=== PATIENT | female | born 1970 | race Caucasian/White ===

== ENCOUNTER 2017-02-07 09:35 | Emergency (ER) | payer OTHER ==
[2017-02-07 09:48] VITALS: BP 135/82; PULSE 78; TEMP 98.6; BMI 37.1
--- NOTE | 2017-02-07 10:55 | PDOC ---
History of Present Illness - General Chief Complaint: Asthma Stated Complaint: SOB, HIGH BLOOD PRESSURE Time Seen by Provider: 02/07/17 10:17 History Source: Patient Exam Limitations: No Limitations - History of Present Illness Initial Comments: 02/07/17 10:55 My chief complaint: intermittent lightheadedness, shortness of breath with exertion, wheezing, since 02/04/2017 My chief complaint: Patient is a 46 year old female with a history of asthma/ gastritis complaining of intermittent lightheadedness with shortness of breath with exertion with wheezing since 02/04/2017. Patient reports that she recently had lab work with her primary care provider and does not have a history of anemia. Patient does have a history also of fibroids. Patient reports that her menstrual cycle as heavy for 2 days only. Patient is being followed by Dr. Tipton for possible hypothroidism will be getting a 24 hr urine cortisol in near future. Pt. denies use her albuterol pump yesterday once for slight wheezing and shortness of breath with relief of symptoms. Patient denies any nasal congestion. Patient reports that she was given a prescription for zyrtec due to having seasonal allergies but has not started to take it. 02/07/17 16:34 02/07/17 16:37 Timing/Duration: intermittent (lightheadness intermittent today and 02/04/17 when at gym riding a bike ) Associated Symptoms: reports: cough (dry ), shortness of breath (with exertion since 02/04/17), other (wheezing intermitent for last few days). denies: headaches, loss of appetite Past History - Past Medical History Allergies/Adverse Reactions: Allergies Allergy/AdvReac Type Severity Reaction Status Date / Time codeine Allergy Verified 02/07/17 09:49 Home Medications: Ambulatory Orders Albuterol 0.083% Nebulizer Angelica [Ventolin 0.083%] 1 neb NEB QID PRN 12/30/15 Asthma: Yes GI Disorders: Yes (GASTRITIS) Suicide Attempt (Hx): No - Surgical History Abdominal Surgery: No Appendectomy: No Cardiac Surgery: No Cholecystectomy: No Lung Surgery: No Neurologic Surgery: No Orthopedic Surgery: No - Immunization History Immunization Up to Date: Yes (FLU 13-14) - Psycho/Social/Smoking Cessation Hx Anxiety: No Suicidal Ideation: No Smoking Status: Yes Smoking History: Never smoked Years of Tobacco Use: 10 Have you smoked in the past 12 months: No Number of Cigarettes Smoked Daily: 10 If you are a former smoker, when did you quit?: 1 YR AGO Cigars Per Day: 0 Hx Alcohol Use: No Drug/Substance Use Hx: No Substance Use Type: None Hx Substance Use Treatment: No Review of Systems - Review of Systems Able to Perform ROS?: Yes Constitutional: No: Symptoms Reported HEENTM: No: Symptoms Reported Respiratory: Yes: Cough (dry intermittent ), SOB with Exertion, Wheezing ( intermitent since 02/04/17) Cardiac (ROS): Yes: Palpitations (with exertion intermittent since 02/04/17) ABD/GI: No: Symptoms Reported : No: Symptoms Reported Musculoskeletal: No: Symptoms Reported Integumentary: No: Symptoms Reported Neurological: No: Symptoms reported *Physical Exam - Vital Signs Last Vital Signs Temp Pulse Resp BP Pulse Ox 98.6 F 78 18 135/82 99 02/07/17 09:46 02/07/17 09:46 02/07/17 09:46 02/07/17 09:46 02/07/17 09:46 - Physical Exam General Appearance: Yes: Appropriately Dressed HEENT: positive: EOMI, AKUA, TMs Normal, Nasal Congestion (superior turbinate edema b/l ). negative: Pharyngeal Erythema, Tonsillar Exudate, Tonsillar Erythema, Rhinorrhea, Sinus Tenderness Neck: negative: Lymphadenopathy (R), Lymphadenopathy (L) Respiratory/Chest: positive: Lungs Clear, Normal Breath Sounds. negative: Chest Tender, Respiratory Distress Cardiovascular: positive: Regular Rhythm, Regular Rate, S1, S2 Integumentary: positive: Normal Color Neurologic: positive: mining technician II-XII NML intact, Fully Oriented, Alert, Normal Response, Respond to painful stimul, Responsive, Finger to Nose. negative: Numbness, Sensory Deficit Medical Decision Making - Medical Decision Making 02/07/17 16:37 Patient is a 46 year old female with a history of asthma/gastritis complaining of intermittent lightheadedness with shortness of breath with exertion with wheezing since 02/04/2017. Patient reports that she recently had lab work with her primary care provider and does not have a history of anemia. Patient does have a history also of fibroids. Patient reports that her menstrual cycle as heavy for 2 days only. Patient is being followed by Dr. Tipton for possible hypothroidism will be getting a 24 hr urine cortisol in near future. Pt. denies use her albuterol pump yesterday once for slight wheezing and shortness of breath with relief of symptoms. Patient denies any nasal congestion. Patient reports that she was given a prescription for zyrtec due to having seasonal allergies but has not started to take it. Intermittent wheezining nasal congestion as noted by superior turbinate edema b/l PLAN: Follow-up with your primary care provider as soon as possible Start taking zytrec previously ordered and usel albuterol pump as previously ordered and any other pumps reviewed labs from 01/27/17 no anemia noted' 02/07/17 16:38 02/07/17 16:39 *DC/Admit/Observation/Transfer Diagnosis at time of Disposition: Nasal congestion, Asthma exacerbation, mild - Referrals Referrals: Fern Shi MD [Primary Care Provider] - - Patient Instructions Additional Instructions: Follow uo with Your primary care provider as soon as possible start taking Zyrtec as previously prescribed use your albuterol pump as previously prescribed as needed for shortness of breath or wheezing Return to emergency room if symptoms worsen Follow up with endocrine as scheduled Follow up with your certified medical biller doctor as soon as possible
== END 2017-02-07 11:24 | disposition home or self-care (01) ==
LOC: JERFT 09:35
DX: J45.901 Unspecified asthma with (acute) exacerbation (principal); R09.81 Nasal congestion
CPT/HCPCS: 99281-25

== ENCOUNTER 2017-11-30 18:53 | Emergency (ER) | payer OTHER ==
--- NOTE | 2017-11-30 19:10 | PDOC ---
History of Present Illness - History of Present Illness Initial Comments: 11/30/17 19:52 The patient is a 47 year old female, with a significant past medical history of asthma, gastritis, fibroids, and endometriosis, who was referred to the emergency department by her primary for RLQ pain and dark stools. Patient reports that on 11/28 and 11/29 she experienced RLQ pain and diarrhea. Yesterday and today she noted dark-colored stools. She also reports chills and nausea this morning. She denies recent fevers, chills, headache or dizziness. She denies recent vomit or constipation. She denies recent dysuria, frequency, urgency or hematuria. She denies recent chest pain or shortness of breath. Primary Care Physician: Dr. Jarrell PAST MEDICAL HISTORY: no significant history PAST SURGICAL HISTORY: tubal ligation FAMILY HISTORY: no pertinent history SOCIAL HISTORY: Pt lives with family and is employed. MEDICATIONS: reviewed ALLERGIES: As per nursing notes ROS General: No fevers or chills, no weakness, no weight loss HEENT: No change in vision. No sore throat, No ear pain Cardiovascular: No chest pain or shortness of breath Respiratory:No cough, or wheezing. Gastrointestinal: +RLQ pain, + diarrhea, +nausea,+dark-colored stools. No vomiting or constipation, No rectal bleeding Genitourinary: No dysuria, hematuria, or frequency Musculoskeletal: No joint or muscle pain or swelling Neurologic: No headache, vertigo, dizziness or loss of consciousness Psychiatric: No depression Skin: No rashes or easy bruising Endocrine: No increased thirst or abnormal weight change Allergic: No skin or latex allergy All other systems reviewed and normal PE GENERAL: The patient is awake, alert, and fully oriented, in no acute distress. HEAD: Normal with no signs of trauma. EYES: Pupils equal, round and reactive to light, extraocular movements intact, sclera anicteric, conjunctiva clear. EXTREMITIES: Normal range of motion, no edema. NEUROLOGICAL: Normal speech, normal gait. PSYCH: Normal mood, normal affect. SKIN: Warm, Dry, normal turgor, no rashes or lesions noted. Rectal Exam: No hemorrhoids, non tender, dark brown stool. No blackness or tarriness noted. <Jana Gaming - Last Filed: 11/30/17 19:52> - General History Source: Patient Exam Limitations: No Limitations - History of Present Illness Initial Comments: A portion of this note was documented by scribe services under my direction. I have reviewed the details of the note, within reason, and agree with the documentation. The case summary and management plan written by me. 11/30/17 20:04 Assessment and plan: This is a 47-year-old female who comes in complaining of dark stools 1 day. Patient had 2 days of diarrhea and some lower abdominal pain which have all since resolved. Patient is had no diarrhea today or abdominal pain. Patient has had no nausea vomiting fevers chills or any other complaints. On my exam patient abdomen was soft with normal bowel sounds no tenderness over the lower abdomen. Patient had a rectal exam done that was nontender with guaiac-negative stool. No further workup was done at this time as patient had normal vitals normal exam and guaiac negative stool. Patient discharged told to follow-up with her primary care doctor <Ana Elliott I - Last Filed: 11/30/17 20:05> - General Chief Complaint: Pain, Acute Stated Complaint: RLQ ABD PAIN Time Seen by Provider: 11/30/17 19:10 Past History <Jana Gaming - Last Filed: 11/30/17 19:52> - Past Medical History Asthma: Yes GI Disorders: Yes (GASTRITIS) - Surgical History Abdominal Surgery: No Appendectomy: No Cardiac Surgery: No Cholecystectomy: No Lung Surgery: No Neurologic Surgery: No Orthopedic Surgery: No - Immunization History Immunization Up to Date: Yes (FLU 13-14) - Suicide/Smoking/Psychosocial Hx Smoking Status: Yes Smoking History: Never smoked Years of Tobacco Use: 10 Have you smoked in the past 12 months: No Number of Cigarettes Smoked Daily: 10 If you are a former smoker, when did you quit?: 1 YR AGO Cigars Per Day: 0 Hx Alcohol Use: No Drug/Substance Use Hx: No Substance Use Type: None Hx Substance Use Treatment: No <Ana Elliott I - Last Filed: 11/30/17 20:05> - Past Medical History Allergies/Adverse Reactions: Allergies Allergy/AdvReac Type Severity Reaction Status Date / Time codeine AdvReac Unknown Verified 11/30/17 18:55 Home Medications: Ambulatory Orders Cholecalciferol (Vitamin D3) [Vitamin D3 -] 50,000 unit PO ASDIR 11/30/17 Abd/GI Specific PMHX - Complaint Specific PMHX Colitis: No Diverticulitis: No <Ana Elliott I - Last Filed: 11/30/17 20:05> Review of Systems - Review of Systems Comments:: 11/30/17 19:53 see HPI <Jana Gaming - Last Filed: 11/30/17 19:52> *Physical Exam - Vital Signs Last Vital Signs Temp Pulse Resp BP Pulse Ox 98.2 F 56 L 20 127/77 100 11/30/17 18:54 11/30/17 18:54 11/30/17 18:54 11/30/17 18:54 11/30/17 18:54 - Physical Exam Comments: 11/30/17 19:53 see HPI. <Jana Gaming - Last Filed: 11/30/17 19:52> ED Treatment Course - ADDITIONAL ORDERS Additional order review: Laboratory Results 11/30/17 11/30/17 11/30/17 19:40 19:15 19:15 Urine Color Yellow Urine Appearance Clear Urine pH 7.0 Ur Specific [place] 1.010 Urine Protein Negative Urine Glucose (UA) Negative Urine Ketones Negative Urine Blood Negative Urine Nitrite Negative Urine Bilirubin Negative Urine Urobilinogen 0.2 Ur Leukocyte Esterase Negative Urine HCG, Qual Negative Stool Occult Blood Negative <Jana Gaming - Last Filed: 11/30/17 19:52> *DC/Admit/Observation/Transfer - Attestations Scribe Attestion: 11/30/17 19:53 Documentation prepared by Jana Gaming, acting as medical transcription for Ana Elliott MD. <Jana Gaming - Last Filed: 11/30/17 19:52> - Discharge Dispostion Admit: No <Ana Elliott I - Last Filed: 11/30/17 20:05> Diagnosis at time of Disposition: Dark stools - Discharge Dispostion Disposition: HOME - Patient Instructions Additional Instructions: The test that I did to determine if there was any blood in your stool was negative for any blood. Return to the emergency department immediately with ANY new, persistent or worsening symptoms. Continue any medications as previously prescribed by your physician. You should follow up with your primary doctor as soon as possible regarding today's emergency department visit. . Please make sure your doctor reviews the results of your emergency evaluation. Thank you for coming to the Emergency Department today for your care. It was a pleasure to see you today. Please note that your evaluation is INCOMPLETE until you follow-up with your doctor.
[2017-11-30 19:11] VITALS: BP 127/77; PULSE 56; TEMP 98.2; BMI 37.1
[2017-11-30 19:36] LABS: URINE APPEARANCE Clear; URINE BILIRUBIN Negative (NEGATIVE); URINE BLOOD Negative (NEGATIVE); URINE COLOR YELLOW; URINE GLUCOSE (UA) Negative (NEGATIVE); URINE KETONE Negative (NEGATIVE); URINE LEUK ESTERASE Negative (NEGATIVE); URINE NITRITE Negative (NEGATIVE); URINE PROTEIN Negative (NEGATIVE); URINE UROBILINOGEN 0.2 (0.2-1.0)
== END 2017-11-30 20:04 | disposition home or self-care (01) ==
LOC: FER 18:53
DX: K92.1 Melena (principal); Z87.891 Personal history of nicotine dependence; J45.909 Unspecified asthma, uncomplicated
CPT/HCPCS: 36415; 81003; 82272; 84703; 99282-25

== ENCOUNTER 2019-01-28 05:59 | Inpatient (IN) | payer OTHER ==
[2019-01-28 07:02] VITALS: BMI 40.3
[2019-01-28] MEDS ORDERED: DEXAMETHASONE SOD PHOSPHATE 4 MG/1 ML VIAL ONE (07:22)
[2019-01-28] MEDS ORDERED: PROPOFOL 20 ML ONE (07:23)
[2019-01-28] MEDS ORDERED: ROCURONIUM BROMIDE 50 MG/5 ML VIAL ONE (07:23)
[2019-01-28] MEDS ORDERED: MIDAZOLAM HCL 2 MG/2 ML SINGLE DOSE VIAL ONE ×2 (07:23→07:27)
[2019-01-28] MEDS ORDERED: ROPIVACAINE HCL 0.5% 30ML VIAL ONE (07:27)
--- NOTE | 2019-01-28 07:45 | HP ---
Admitting History and Physical - Admission Chief Complaint: Morbid obesity History of Present Illness: As above History Source: Patient Limitations to Obtaining History: No Limitations - Past Medical History Pulmonary: Yes: Asthma ...LMP: 12/12/18 ...: No - Past Surgical History Past Surgical History: Yes: - Smoking History Smoking history: Never smoked Have you smoked in the past 12 months: No Aproximately how many cigarettes per day: 10 If you are a former smoker, when did you quit?: 2009 - Alcohol/Substance Use Hx Alcohol Use: Yes (SOCIALLY) Home Medications - Allergies Allergies/Adverse Reactions: Allergies Allergy/AdvReac Type Severity Reaction Status Date / Time codeine AdvReac Unknown ANXIETY;NER Verified 01/22/19 13:51 VOUS - Home Medications Home Medications: Ambulatory Orders Albuterol Sulfate [Albuterol Sulfate Hfa] 2 puff IH ASDIR PRN 01/22/19 Multivitamins [Tab-A-Vit -] 1 tab PO DAILY 01/22/19 Family Disease History - Family Disease History Family History: Denies Review of Systems - Review of Systems Constitutional: denies: Chills, Fever Neck: reports: No Symptoms Cardiovascular: reports: No Symptoms Respiratory: reports: No Symptoms Gastrointestinal: reports: No Symptoms Neurological: reports: No Symptoms Pain Intensity: 0 Physical Examination Vital Signs: Vital Signs Temperature 98.0 F 01/28/19 06:57 Pulse Rate 59 L 01/28/19 06:57 Respiratory Rate 18 01/28/19 06:57 Blood Pressure 123/82 01/28/19 06:57 O2 Sat by Pulse Oximetry (%) HENT: Yes: WNL Neck: Yes: WNL Cardiovascular: Yes: WNL Respiratory: Yes: Regular Gastrointestinal: Yes: Soft, Abdomen, Obese. No: Tenderness Neurological: Yes: Alert, Oriented Problem List - Problems (1) Morbid obesity due to excess calories Code(s): E66.01 - MORBID (SEVERE) OBESITY DUE TO EXCESS CALORIES (2) Asthma Code(s): J45.909 - UNSPECIFIED ASTHMA, UNCOMPLICATED Qualifiers: Asthma severity: unspecified severity Asthma complication type: unspecified Assessment/Plan Laparoscopic possible open vertical sleeve gastrectomy possible liver biopsy, upper endoscopy
[2019-01-28] MEDS ORDERED: ALBUTEROL SO4 8 GM HFA INHALER IH PRN (07:47)
[2019-01-28] MEDS ORDERED: BUPIVACAINE HCL/PF 2.5 MG/ML - 30 ML VIAL IJ ONE (08:55)
[2019-01-28] MEDS ORDERED: GLYCOPYRROLATE 0.2 MG/1 ML VIAL ONE (09:22)
[2019-01-28] MEDS ORDERED: NEOSTIGMINE METHYLSULFATE 0.5 MG/ML - 10 ML MDV ONE (09:22)
--- NOTE | 2019-01-28 09:32 | OP ---
Operative Note - Note: Operative Date: 01/28/19 Pre-Operative Diagnosis: Morbid obesity. BMI 40.4 Operation: Laparoscopic vertical sleeve gastrectomy. wedge liver biopsy Post-Operative Diagnosis: Same as Pre-op (as well as hepatomegaly) Surgeon: Burt Lizama Replenishment Specialist: Luis Fernando Das Anesthesia: General Specimens Removed: Greater curvature of stomach. Liver biopsy Estimated Blood Loss (mls): 30 Drains & Tubes with Location: 36 Fr Bougie Operative Report Dictated: Yes
[2019-01-28] MEDS: ACETAMINOPHEN 1000 MG/100 ML VIAL (NON FORMULARY) IVPB SCH ×4 (09:50→21:32)
[2019-01-28] MEDS ORDERED: FAMOTIDINE 20 MG PREMIXED IVPB IVPB ONE (10:00)
[2019-01-28] MEDS: METOCLOPRAMIDE HCL INJECTION 10 MG/2 ML VIAL IVPUSH SCH ×4 (10:10→21:33)
[2019-01-28] MEDS: ONDANSETRON 4 MG/2 ML VIAL IVPUSH SCH ×5 (10:28→21:32)
[2019-01-28 10:34] LABS: HEMATOCRIT 38.7 % (32.4-45.2); HEMOGLOBIN 12.3 GM/dl (10.7-15.3); MCH 26.9 pg (25.7-33.7); MCHC 31.8 g/dl (32.0-36.0); MEAN CELL VOLUME 84.7 fl (80-96); MEAN PLT VOLUME 8.9 fl (7.5-11.1); PLATELET COUNT 289 K/MM3 (134-434); RBC 4.57 M/mm3 (3.60-5.2); RDW 14.1 % (11.6-15.6); WHITE BLOOD COUNT 10.6 K/mm3 (4.0-10.8)
[2019-01-28 10:41] LABS: ALBUMIN 3.6 g/dl (3.4-5.0); ALK PHOS 127 U/L (45-117); ANION GAP 6 MMOL/L (8-16); BILIRUBIN,TOTAL 0.7 mg/dl (0.2-1); BLOOD UREA NITROGEN 13 mg/dl (7-18); CALCIUM 8.6 mg/dl (8.5-10); CHLORIDE 104 mmol/L (98-107); CO2 24 mmol/L (21-32); CREATININE 0.7 mg/dl (0.55-1.3); GLUCOSE,RANDOM 130 mg/dl (74-106); SGOT/AST 50 U/L (15-37); SGPT/ALT 45 U/L (13-61); SODIUM 134 mmol/L (136-145); TOT PROT 6.6 g/dl (6.4-8.2)
[2019-01-28] MEDS: SODIUM CHLORIDE 1,000 ML IV SCH (10:59)
[2019-01-28] MEDS: FAMOTIDINE 20 MG/50 ML IVPB 20 MG/50 ML MG IVPB SCH ×2 (11:00→21:32)
[2019-01-28] MEDS: HYDROmorphone HCL CARPU-JECT 1 MG/1 ML DISP.SYRIN IVPB PRN (14:22)
--- NOTE | 2019-01-28 18:57 | SPEC ---
DATE OF OPERATION: 01/28/2019 SURGEON: Nila Lizama MD FUR DYER: Luis Fernando Das MD PREOPERATIVE DIAGNOSES: 1. Morbid obesity. 2. Asthma. 3. Body mass index of 40.4. POSTOPERATIVE DIAGNOSES: 1. Morbid obesity. 2. Asthma. 3. Body mass index of 40.4. 4. Hepatomegaly. PROCEDURE: 1. Laparoscopic vertical sleeve gastrectomy. 2. Laparoscopic wedge liver biopsy. SPECIMEN: 1. Greater curvature of the stomach. 2. Liver biopsy. ESTIMATED BLOOD LOSS: 30 mL. DRAIN: None. ANESTHESIA: GET. BOUGIE SIZE: 36-[place]. REASON FOR PROCEDURE: This is a 48-year-old female who presents for weight loss options. After describing different options, she decided to proceed with a laparoscopic, possible open, vertical sleeve gastrectomy, possible liver biopsy, and upper endoscopy. RISKS AND BENEFITS: After describing the different options for weight loss management, the patient decided to proceed with a laparoscopic, possible open vertical sleeve gastrectomy. The patient was seen by the respective subspecialties and cleared for surgery. The risks and benefits of the procedure were explained. These included bleeding, infection, hernia, VA, DVT, PE, injury to surrounding structures including the liver, colon, bowel, spleen, esophagus, vessel injury, nerve injury, weight regain, gastric leak, staple line leak, sleeve leak, obstruction, vitamin deficiency, hair loss and as some of the possible complications. The patient understood and signed informed consent. DESCRIPTION OF PROCEDURE: The patient was placed supine on the operating room table. The patient underwent general endotracheal intubation. The arms were brought out at 90 degrees and secured. A footboard was placed and the legs were secured laterally with padding. The abdomen was prepped and draped in the usual sterile fashion. A timeout was performed. An incision was made in the left upper quadrant and a Veress needle inserted. Pneumoperitoneum was established. Subsequently, the Veress needle was removed and a 5-mm trocar was placed under direct visualization with the laparoscope. The laparoscopic camera was then inserted and inspection of the abdominal cavity was performed. An incision was then made in the supraumbilical area and a 15-mm trocar was placed under direct visualization. A 5-mm trocar was then placed in the right upper quadrant and a 5-mm trocar was placed below the left subcostal margin. A stab wound was made in the subxiphoid area and a Stpehanie clamp inserted and removed to dilate the tract. A Cynthia liver retractor was inserted. The post was secured at the bedside by the nursing staff. The patient was placed in steep reverse Trendelenburg position and the Cynthia liver retractor was used to secure the liver towards the anterior abdominal wall. The pylorus was identified and 6 cm proximal to it, the lesser sac was entered using the LigaSure device. All lateral attachments to the greater curvature of the stomach, including the short gastric vessels, were ligated using the LigaSure device toward the gastrosplenic and gastrophrenic ligaments. Once this was done in its entirety, it was confirmed that all tubes within the nasal or oropharyngeal cavity, including a temperature probe, was removed by Anesthesia. The bougie was then inserted by Anesthesia. Transection of the stomach was then begun staying adjacent to the bougie but away from the angularis. Transection of the stomach was performed near the portion of the stomach where the lesser sac was entered. Two laparoscopic Endo-MEI black sade were used at this location. Laparoscopic Endo MEI purple staple loads were then used for the remainder of the transection until the greater curvature of the stomach was fully transected. This was done staying close to the bougie. Care was taken to stay away from the angle of His cephalad. The staple line was then inspected. Hemostasis was identified. A leak test was then performed. It was clamped distally to the staple line. Irrigation solution was placed in the left upper quadrant and air was insufflated by Anesthesia into the sleeve. No leaks were identified. No obstruction was identified. This was done through the entirety of the staple line. In addition, an upper endoscopy was performed. The endoscope was placed into the patients mouth and the entirety of the esophagus, GE junction, gastric pouch and staple line were inspected. No obstruction or leak was noted. The stomach was suctioned and the endoscope removed fully intact. At this point, the irrigation solution was suctioned and again, hemostasis was noted. A wedge liver biopsy was then performed. The left lobe of the liver was identified and a portion of the edge was grasped. Using electrocautery, a wedge of the liver was excised. This was removed and sent off the field as specimen. Hemostasis at the site of the wedge liver biopsy was attained using electrocautery. The 15-mm supraumbilical trocar was then removed and the greater curvature specimen removed from the site using a sponge stick marino. The specimen was inspected and a Veress needle inserted. The specimen insufflated adequately and no leak was identified. The staple line was noted to be intact. A Catalino-Reshma device was then used to close the fascia with a 0 Vicryl suture at the site. Again, hemostasis was noted. The Cynthia liver retractor was then removed under direct visualization. Pneumoperitoneum was desufflated and the fascial sutures were secured. Hemostasis was noted at all incision sites and Marcaine was injected at all incision sites. All incision sites were closed using 4-0 Biosyn. Sterile dressings were applied. The patient tolerated the procedure well and was transferred to the recovery room in stable condition. The patient was transferred to telemetry for further monitoring. NILA LIZAMA M.D. NATALEE/[id number]
[2019-01-28] MEDS: ENOXAPARIN NA (PORCINE) 40 MG/0.4 ML DISP.SYRIN SQ SCH (21:31)
[2019-01-29] MEDS: ONDANSETRON 4 MG/2 ML VIAL IVPUSH SCH ×3 (02:07→10:15)
[2019-01-29] MEDS: METOCLOPRAMIDE HCL INJECTION 10 MG/2 ML VIAL IVPUSH SCH ×2 (03:24→10:14)
[2019-01-29] MEDS: ACETAMINOPHEN 1000 MG/100 ML VIAL (NON FORMULARY) IVPB SCH (03:25)
[2019-01-29 07:50] LABS: HEMATOCRIT 34.1 % (32.4-45.2); HEMOGLOBIN 11.1 GM/dl (10.7-15.3); MCH 27.4 pg (25.7-33.7); MCHC 32.6 g/dl (32.0-36.0); MEAN PLT VOLUME 9.2 fl (7.5-11.1); PLATELET COUNT 265 K/MM3 (134-434); RBC 4.06 M/mm3 (3.60-5.2); RDW 14.1 % (11.6-15.6); WHITE BLOOD COUNT 9.1 K/mm3 (4.0-10.8)
[2019-01-29 08:00] LABS: ALBUMIN 3.1 g/dl (3.4-5.0); ALK PHOS 105 U/L (45-117); ANION GAP 6 MMOL/L (8-16); BILIRUBIN,TOTAL 1.1 mg/dl (0.2-1); BLOOD UREA NITROGEN 9 mg/dl (7-18); CHLORIDE 106 mmol/L (98-107); CO2 22 mmol/L (21-32); CREATININE 0.6 mg/dl (0.55-1.3); GLUCOSE,RANDOM 88 mg/dl (74-106); POTASSIUM 3.8 mmol/L (3.5-5.1); SGOT/AST 38 U/L (15-37); SGPT/ALT 39 U/L (13-61); SODIUM 134 mmol/L (136-145); TOT PROT 5.9 g/dl (6.4-8.2)
[2019-01-29] MEDS: SODIUM CHLORIDE 1,000 ML IV SCH (10:13)
[2019-01-29] MEDS: ENOXAPARIN NA (PORCINE) 40 MG/0.4 ML DISP.SYRIN SQ SCH (10:14)
[2019-01-29] MEDS: FAMOTIDINE 20 MG/50 ML IVPB 20 MG/50 ML MG IVPB SCH (10:14)
[2019-01-29] MEDS: HYDROmorphone HCL CARPU-JECT 1 MG/1 ML DISP.SYRIN IVPB PRN (10:16)
--- NOTE | 2019-01-29 11:23 | PN ---
Progress Note (short form) - Note Progress Note: Anesthesia POD#1, S/P Laparoscopic vertical sleeve gastrectomy, wedge liver biopsy, under GA. VSS. Ambulating. Pain well controlled,Score, 2/10. No apparent post anesthesia complications. Continued care as per primary team.
[2019-01-29 11:27] VITALS: PULSE 80; TEMP 98.8
[2019-01-29] MEDS ORDERED: oxyCODONE HCL 5 MG TABLET PO PRN (12:51)
--- NOTE | 2019-01-29 12:51 | PN ---
Progress Note (short form) - Note Progress Note: POD 1 Laparoscopic vertical sleeve gastrectomy, wedge liver biopsy No nausea Pain controlled Vital Signs Period Temp Pulse Resp BP Sys/Valenzuela Pulse Ox Last 24 Hr 98.4 F-99.6 F 65-80 18-20 116-147/61-78 97-99 Abd soft CBC,CMP WBC 9.1 K/mm3 (4.0-10.8) 01/29/19 07:06 RBC 4.06 M/mm3 (3.60-5.2) 01/29/19 07:06 Hgb 11.1 GM/dl (10.7-15.3) 01/29/19 07:06 Hct 34.1 % (32.4-45.2) 01/29/19 07:06 MCV 84.0 fl (80-96) 01/29/19 07:06 MCH 27.4 pg (25.7-33.7) 01/29/19 07:06 MCHC 32.6 g/dl (32.0-36.0) 01/29/19 07:06 RDW 14.1 % (11.6-15.6) 01/29/19 07:06 Plt Count 265 K/MM3 (134-434) 01/29/19 07:06 MPV 9.2 fl (7.5-11.1) 01/29/19 07:06 Sodium 134 mmol/L (136-145) L 01/29/19 07:06 Potassium 3.8 mmol/L (3.5-5.1) 01/29/19 07:06 Chloride 106 mmol/L (98-107) 01/29/19 07:06 Carbon Dioxide 22 mmol/L (21-32) 01/29/19 07:06 Anion Gap 6 MMOL/L (8-16) L 01/29/19 07:06 BUN 9 mg/dl (7-18) 01/29/19 07:06 Creatinine 0.6 mg/dl (0.55-1.3) 01/29/19 07:06 Creat Clearance w eGFR 107.16 (>60) 01/29/19 07:06 Random Glucose 88 mg/dl (74-106) 01/29/19 07:06 Calcium 8.0 mg/dl (8.5-10) L 01/29/19 07:06 Total Bilirubin 1.1 mg/dl (0.2-1) H 01/29/19 07:06 AST 38 U/L (15-37) H 01/29/19 07:06 ALT 39 U/L (13-61) 01/29/19 07:06 Alkaline Phosphatase 105 U/L (45-117) D 01/29/19 07:06 Total Protein 5.9 g/dl (6.4-8.2) L 01/29/19 07:06 Albumin 3.1 g/dl (3.4-5.0) L 01/29/19 07:06 UGI: no leak/obstruction Clears Discharge home Problem List - Problems (1) Morbid obesity due to excess calories Code(s): E66.01 - MORBID (SEVERE) OBESITY DUE TO EXCESS CALORIES (2) Asthma Code(s): J45.909 - UNSPECIFIED ASTHMA, UNCOMPLICATED Qualifiers: Asthma severity: unspecified severity Asthma complication type: unspecified
[2019-01-29] MEDS ORDERED: SODIUM CHLORIDE 1,000 ML IV SCH (13:00)
[2019-01-29 13:40] VITALS: BP 122/66
--- NOTE | 2019-01-30 16:10 | PATH ---
Surgical Pathology Report Patient Name: SIENNA PHELAN Med. Rec. #: [id number] /Age/Gender: 1970 (Age: 48) / F Account: [id number] Location: [facility] Taken: 01/28/2019 Received: 01/28/2019 Reported: 01/30/2019 Physicians: Burt Lizama M.D. Specimen(s) Received A: PARTIAL STOMACH B: LIVER BIOPSY Clinical History Morbid obesity Final Diagnosis A. PARTIAL STOMACH, LAPAROSCOPIC VERTICAL SLEEVE GASTRECTOMY: PORTION OF STOMACH WITH SEVERE CHRONIC ACTIVE GASTRITIS. IMMUNOHISTOCHEMICAL STAIN FOR H. PYLORI IS POSITIVE (FEW). B. LIVER, BIOPSY: LIVER PARENCHYMA WITH MILD STEATOSIS (~5%). NO INCREASE IN IRON AND FIBROSIS ON PERFORMED SPECIAL STAINS (IRON AND TRICHROME). Comment: Subcapsular biopsy with thermal artifact. Electronically Signed Sienna De Los Santos M.D. Gross Description A. Received in formalin, labeled "partial stomach," is a 147 gram, 24.0 x 4.0 x 3.4 cm. portion of stomach with a stapled margin of resection. The serosa is rosa-gaspar with minimal attached fat. The mucosa is rosa-pink with normal folds. No mucosal masses are identified. Metallurgy Teacher sections are submitted in one cassette. B. Received in formalin labeled "liver biopsy," is a 2.2 x 1.7 x 1.1 cm rosa portion of soft tissue, consistent with a liver biopsy. Metallurgy Teacher sections are submitted in one cassette. /01/29/2019 saudi/01/29/2019
== END 2019-01-29 13:50 | disposition home or self-care (01) | DRG 403 ==
LOC: FM/S 05:59
PROVIDERS: ADMIT Surgery; ATTEND Surgery
PROC: 0DB64Z3 Excision of Stomach, Percutaneous Endoscopic Approach, Vertical (ICD-10-PCS; principal; 2019-01-28 08:20)
PROC: 0FB24ZX Excision of Left Lobe Liver, Percutaneous Endoscopic Approach, Diagnostic (ICD-10-PCS; 2019-01-28 08:20)
DX: E66.01 Morbid (severe) obesity due to excess calories (principal); R16.0 Hepatomegaly, not elsewhere classified; J45.909 Unspecified asthma, uncomplicated; Z87.891 Personal history of nicotine dependence; Z68.41 Body mass index [BMI] 40.0-44.9, adult
CPT/HCPCS: 36415; 74241-TC-FY; 80053; 81025; 85027; 88305-TC; 88313-TC; 88342-TC; 94760; J0131; J7030

== ENCOUNTER 2019-02-01 09:51 | Emergency (ER) | payer OTHER ==
--- NOTE | 2019-02-01 10:06 | PDOC ---
History of Present Illness - General Chief Complaint: Diarrhea Stated Complaint: DIARRHEA, S/P GASTRIC SLEEVE Time Seen by Provider: 02/01/19 10:06 History Source: Patient Exam Limitations: No Limitations - History of Present Illness Initial Comments: 02/01/19 12:25 Pt presents to the ED complaining of a two day history of diarrhea after gastric sleeve surgery on 01/29. Patient reports 9 episodes of diarrhea on Monday and two yesterday. Denies fever or vomiting. States that her pain was minimal. Diarrhea is watery and foul smelling. She has been compliant with the clear liquid diet prescribed by Dr. Lizama. She states that she has a small bowel movement every time she eats or drinks something. Past History - Past Medical History Allergies/Adverse Reactions: Allergies Allergy/AdvReac Type Severity Reaction Status Date / Time codeine AdvReac Unknown ANXIETY;NER Verified 02/01/19 10:09 VOUS Home Medications: Ambulatory Orders Albuterol Sulfate [Albuterol Sulfate Hfa] 2 puff IH ASDIR PRN 01/22/19 Multivitamins [Tab-A-Vit -] 1 tab PO DAILY 01/22/19 Famotidine [Pepcid] 20 mg PO BID #60 tablet 01/28/19 Oxycodone HCl/Acetaminophen [Percocet 5-325 mg Tablet] 1 - 2 tab PO Q6H #28 tab MDD 4 01/28/19 Anemia: No Asthma: Yes Cancer: No Cardiac Disorders: No CVA: No COPD: No CHF: No Dementia: No Diabetes: No GI Disorders: No Disorders: No HTN: No Hypercholesterolemia: No Liver Disease: No Seizures: No Thyroid Disease: No - Surgical History Abdominal Surgery: No Appendectomy: No Cardiac Surgery: No Cholecystectomy: No Lung Surgery: No Neurologic Surgery: No Orthopedic Surgery: No - Immunization History Immunization Up to Date: Yes (FLU 13-14) - Suicide/Smoking/Psychosocial Hx Smoking Status: Yes Smoking History: Never smoked Years of Tobacco Use: 10 Have you smoked in the past 12 months: No Number of Cigarettes Smoked Daily: 10 If you are a former smoker, when did you quit?: 2009 Cigars Per Day: 0 Hx Alcohol Use: Yes (SOCIALLY) Drug/Substance Use Hx: No Substance Use Type: None Hx Substance Use Treatment: No Review of Systems - Review of Systems Able to Perform ROS?: Yes Is the patient limited French proficient: No Constitutional: No: Symptoms Reported, See HPI, Chills, Diaphoresis, Fever, Loss of Appetite, Malaise, Night Sweats, Weakness, Weight Stable, Unintentional Wgt. Loss, Unexplained wgt Loss, Other HEENTM: No: Symptoms Reported, See HPI, Eye Pain, Blurred Vision, Tearing, Recent change in vision, Double Vision, Cataracts, Ear Pain, Ocular Prothesis, Ear Discharge, Nose Pain, Nose Congestion, Tinnitus, Nose Bleeding, Hearing Loss , Throat Pain, Throat Swelling, Mouth Pain, Dental Problems, Difficulty Swallowing, Mouth Swelling, Other Respiratory: No: Symptoms reported, See HPI, Cough, Orthopnea, Shortness of Breath, SOB with Exertion, SOB at Rest, Stridor, Wheezing, Productive cough, Hemoptysis, Other Cardiac (ROS): No: Symptoms Reported, See HPI, Chest Pain, Edema, Irregular Heart Rate, Lightheadedness, Palpitations, Syncope, Chest Tightness, Other ABD/GI: Yes: Diarrhea. No: Symptoms Reported, See HPI, Abdominal Distended, Abd. Pain w/ defecation, Blood Streaked Bowels, Constipated, Difficulty Swallowing, Nausea, Poor Appetite, Poor Fluid Intake, Rectal Bleeding, Vomiting , Indigestion, Abdominal cramping, Tarry Stools, Other Musculoskeletal: No: Symptoms Reported, See HPI, Back Pain, Gout, Joint Pain, Joint Swelling, Muscle Pain, Muscle Weakness, Neck Pain, Joint Stiffness, Other Integumentary: No: Symptoms Reported, See HPI, Bruising, Change in Color, Change in Hair/Nails, Dryness, Erythema, Flushing, Lesions, Lumps, Pallor, Pruritus, Rash, Sweating, Other Neurological: No: Symptoms reported, See HPI, Headache, Numbness, Paresthesia, Pre-Existing Deficit, Seizure, Tingling, Tremors, Weakness, Unsteady Gait, Ataxia, Dizziness, Other Psychiatric: No: Anxiety, Depression, Frequent Crying, Stressors, Sleep Pattern Change, Emotional Problems, Mood Swings, Change in Appetite, Other Endocrine: No: Symptoms Reported, See HPI, Excessive Sweating, Flushing, Intolerance to Cold, Intolerance to Heat, Increased Hunger, Increased Thirst, Increased Urine, Unexplained Weight Gain, Unexplained Weight Loss, Change in Weight, Other ED Treatment Course - LABORATORY CBC & Chemistry Diagram: 02/01/19 10:45 02/01/19 10:45 Medical Decision Making - Medical Decision Making 02/01/19 12:32 Pt presents to the ED complaining of loose watery diarrhea after gastric sleeve surgery. No fever, vomiting or abdominal pain. Diarrhea may be simply post surgical. According to Dr. Lizama, patient only had one dose of antibiotics after surgery, so c diff is possible but unlikely. Case discussed at length with Dr. Lizama. Since the surgery was only on the stomach and did not involve the bowel at all, he feels that obstruction is unlikely and imaging is not needed at this time. Will discharge home with follow up with Dr. Lizama on 02/08. *DC/Admit/Observation/Transfer Diagnosis at time of Disposition: Diarrhea Qualifiers: Diarrhea type: unspecified type Qualified Code(s): R19.7 - Diarrhea, unspecified - Discharge Dispostion Disposition: HOME Condition at time of disposition: Good Decision to Admit order: No - Referrals Referrals: Burt Lizama MD [Primary Care Provider] - - Patient Instructions Printed Discharge Instructions: Diarrhea Additional Instructions: You came to the Ed for diarrhea. Your blood work in the ED looks normal. You should return immediately to the ED for severe pain, fever, bloody diarrhea or vomiting. Make sure that you see Dr. Lizama on 02/08. Also return if the diarrhea is worsening or if you feel lightheaded or pass out. - Post Discharge Activity
[2019-02-01 10:16] VITALS: TEMP 98.3; BMI 39.4
[2019-02-01] MEDS ORDERED: SODIUM CHLORIDE 0.9% 500 ML INFUS.BAG IV ONE ×2 (10:35→11:44)
[2019-02-01 11:36] LABS: ALBUMIN 3.4 g/dl (3.4-5.0); ALK PHOS 119 U/L (45-117); ANION GAP 15 MMOL/L (8-16); BILIRUBIN,TOTAL 1.5 mg/dl (0.2-1); BLOOD UREA NITROGEN 11 mg/dl (7-18); CALCIUM 8.9 mg/dl (8.5-10); CHLORIDE 104 mmol/L (98-107); CO2 18 mmol/L (21-32); CREATININE 0.7 mg/dl (0.55-1.3); GLUCOSE,RANDOM 70 mg/dl (74-106); POTASSIUM 4.1 mmol/L (3.5-5.1); SGOT/AST 22 U/L (15-37); SGPT/ALT 25 U/L (13-61); SODIUM 137 mmol/L (136-145); TOT PROT 6.9 g/dl (6.4-8.2)
[2019-02-01 11:38] LABS: BASO % 0.4 % (0-2.0); EOS % 1.5 % (0-4.5); HEMATOCRIT 36.5 % (32.4-45.2); HEMOGLOBIN 11.8 GM/dl (10.7-15.3); LYMPH % 17.4 % (8-40); MCH 27.1 pg (25.7-33.7); MCHC 32.2 g/dl (32.0-36.0); MEAN CELL VOLUME 84.1 fl (80-96); MEAN PLT VOLUME 9.3 fl (7.5-11.1); MONO % 8.4 % (3.8-10.2); NEUT % 72.3 % (42.8-82.8); PLATELET COUNT 311 K/MM3 (134-434); RBC 4.34 M/mm3 (3.60-5.2); RDW 13.9 % (11.6-15.6); WHITE BLOOD COUNT 8.2 K/mm3 (4.0-10.8)
[2019-02-01 11:51] VITALS: BP 105/60; PULSE 60
[2019-02-01 12:40] LABS: LIPASE 326 U/L (73-393)
== END 2019-02-01 12:57 | disposition home or self-care (01) ==
LOC: FER 09:51
PROC: 3E0337Z Introduction of Electrolytic and Water Balance Substance into Peripheral Vein, Percutaneous Approach (ICD-10-PCS; principal; 2019-02-01)
DX: R19.7 Diarrhea, unspecified (principal); Z98.84 Bariatric surgery status; J45.909 Unspecified asthma, uncomplicated; Z87.891 Personal history of nicotine dependence
CPT/HCPCS: 36415; 80053; 83690; 85025; 99283-25

== ENCOUNTER 2019-03-13 08:43 | Emergency (ER) | payer OTHER ==
[2019-03-13 08:51] VITALS: BP 127/86; PULSE 95; TEMP 98.1; BMI 35.2
--- NOTE | 2019-03-13 09:09 | PDOC ---
History of Present Illness - General Chief Complaint: Rectal Bleed Stated Complaint: RECTAL BLEED Time Seen by Provider: 03/13/19 08:57 History Source: Patient - History of Present Illness Timing/Duration: reports: intermittent Past History - Past Medical History Allergies/Adverse Reactions: Allergies Allergy/AdvReac Type Severity Reaction Status Date / Time codeine AdvReac Unknown ANXIETY;NER Verified 03/13/19 08:46 VOUS Home Medications: Ambulatory Orders Albuterol Sulfate [Albuterol Sulfate Hfa] 2 puff IH ASDIR PRN 01/22/19 Multivitamins [Tab-A-Vit -] 1 tab PO DAILY 01/22/19 Famotidine [Pepcid] 20 mg PO BID #60 tablet 01/28/19 Polyethylene Glycol 3350 [Miralax (For Daily Use) -] 17 gm PO DAILY #1 bottle Anemia: No Asthma: Yes Cancer: No Cardiac Disorders: No CVA: No COPD: No CHF: No Dementia: No Diabetes: No GI Disorders: No Disorders: No HTN: No Hypercholesterolemia: No Liver Disease: No Seizures: No Thyroid Disease: No - Surgical History Abdominal Surgery: No Appendectomy: No Cardiac Surgery: No Cholecystectomy: No Gastric Stapling: Yes (01/28/19) Lung Surgery: No Neurologic Surgery: No Orthopedic Surgery: No - Immunization History Immunization Up to Date: Yes (FLU -) - Suicide/Smoking/Psychosocial Hx Smoking Status: Yes Smoking History: Never smoked Years of Tobacco Use: 10 Have you smoked in the past 12 months: No Number of Cigarettes Smoked Daily: 10 If you are a former smoker, when did you quit?: 2010 Cigars Per Day: 0 Hx Alcohol Use: No Drug/Substance Use Hx: No Substance Use Type: None Hx Substance Use Treatment: No Abd/GI Specific PMHX - Complaint Specific PMHX Colitis: No Diverticulitis: No Review of Systems - Review of Systems Constitutional: No: Chills, Fever ABD/GI: Yes: Blood Streaked Bowels, Constipated. No: Diarrhea, Nausea, Vomiting , Abdominal cramping, Tarry Stools : No: Dysuria *Physical Exam - Vital Signs Last Vital Signs Temp Pulse Resp BP Pulse Ox 98.1 F 95 H 17 127/86 100 03/13/19 08:46 03/13/19 08:46 03/13/19 08:46 03/13/19 08:46 03/13/19 08:46 - Physical Exam General Appearance: Yes: Appropriately Dressed. No: Apparent Distress HEENT: positive: Normal Voice Neck: positive: Supple Respiratory/Chest: negative: Respiratory Distress Gastrointestinal/Abdominal: positive: Normal Bowel Sounds, Soft. negative: Tender, Distended, Guarding, Rebound Rectal Exam: positive: normal rectal tone, other (trace BRB seen grossly on exam ). negative: hemorrhoids Musculoskeletal: negative: CVA Tenderness Integumentary: positive: Dry, Warm Neurologic: positive: Fully Oriented, Alert, Normal Mood/Affect ED Treatment Course - LABORATORY CBC & Chemistry Diagram: 03/13/19 09:09 03/13/19 09:09 Medical Decision Making - Medical Decision Making 03/13/19 09:04 48-year-old female, s/p gastric sleeve surgery on 01/29/[address] Lizama, constipation, here with BRBPR. Patient states she normally have a bowel movement every 3-4 days and states after not having a bowel movement for 3 days , she finally went yesterday and had to strain on the toilet and noticed BRB mixed in with stool. Noticed same this a.m. No weakness, dizziness, abdominal pain, nausea, vomiting, f/c, melena, rectal pain/swelling. Not currently on any stool softeners See exam BRBPR M/l 2/2 constipation per hx S/p gastric sleeve > 1 month ago No abd pain, n/v to suggest SBO No upper abd pain or melena to suggest UGI source Well bro on exam w/ benign abd, + trace gross BRB on rectal exam, no hemorrhoids seen or palpated -will check CBC given recent GI surgery -anticipate dc w/ stool softener and GI f/u 03/13/19 09:58 CBC within normal limits. Case discussed with Dr. Lizama who agrees with discharging on MiraLAX. States patient to follow-up with Dr Dia of GI for constipation *DC/Admit/Observation/Transfer Diagnosis at time of Disposition: BRBPR (bright red blood per rectum) Constipated Qualifiers: Constipation type: unspecified constipation type Qualified Code(s): K59.00 - Constipation, unspecified - Discharge Dispostion Disposition: HOME Condition at time of disposition: Stable - Prescriptions Prescriptions: Polyethylene Glycol 3350 [Miralax (For Daily Use) -] 17 gm PO DAILY #1 bottle - Referrals Referrals: Jason Antunez MD [Primary Care Provider] - Mandeep Dia MD [Staff Physician] - - Patient Instructions Printed Discharge Instructions: DI for Rectal Bleeding, DI for Constipation Additional Instructions: Your blood work was normal today. Please take MiraLAX as prescribed and follow-up with Dr. Dia of GI for your ongoing constipation. Please return to the ER as needed - Post Discharge Activity Forms/Work/School Notes: Back to Work
[2019-03-13 09:21] LABS: EOS % 2.7 % (0-4.5); HEMATOCRIT 40.6 % (32.4-45.2); HEMOGLOBIN 12.9 GM/dL (10.7-15.3); LYMPH % 23.7 % (8-40); MCHC 31.7 g/dl (32.0-36.0); MEAN CELL VOLUME 85.2 fl (80-96); MEAN PLT VOLUME 9.5 fl (7.5-11.1); MONO % 7.9 % (3.8-10.2); NEUT % 64.7 % (42.8-82.8); PLATELET COUNT 247 K/MM3 (134-434); RBC 4.76 M/mm3 (3.60-5.2); RDW 16.2 % (11.6-15.6); WHITE BLOOD COUNT 4.9 K/mm3 (4.0-10.0)
[2019-03-13 09:50] LABS: ALBUMIN 3.7 g/dl (3.4-5.0); BILIRUBIN,TOTAL 0.7 mg/dL (0.2-1); CALCIUM 9.6 mg/dL (8.5-10.1); CREATININE 0.7 mg/dL (0.55-1.3); TOT PROT 7.4 g/dl (6.4-8.2)
--- NOTE | 2019-03-13 11:30 | PDOC ---
*Physical Exam - Vital Signs Last Vital Signs Temp Pulse Resp BP Pulse Ox 98.1 F 95 H 17 127/86 98 03/13/19 08:46 03/13/19 08:46 03/13/19 08:46 03/13/19 08:46 03/13/19 09:09 ED Treatment Course - LABORATORY CBC & Chemistry Diagram: 03/13/19 09:09 03/13/19 09:09 - ADDITIONAL ORDERS Additional order review: Laboratory Results 03/13/19 09:09 Sodium 139 Potassium 4.0 Chloride 105 Carbon Dioxide 28 Anion Gap 6 L BUN 11 Creatinine 0.7 Est GFR (CKD-EPI)AfAm 119.58 Est GFR (CKD-EPI)NonAf 103.18 Random Glucose 90 Calcium 9.6 Total Bilirubin 0.7 AST 13 L ALT 16 Alkaline Phosphatase 121 H Total Protein 7.4 Albumin 3.7 03/13/19 09:09 RBC 4.76 MCV 85.2 MCHC 31.7 L RDW 16.2 H MPV 9.5 Neutrophils % 64.7 D Lymphocytes % 23.7 D Monocytes % 7.9 Eosinophils % 2.7 Basophils % 1.0 *DC/Admit/Observation/Transfer Diagnosis at time of Disposition: BRBPR (bright red blood per rectum) Constipated Qualifiers: Constipation type: unspecified constipation type Qualified Code(s): K59.00 - Constipation, unspecified - Discharge Dispostion Disposition: HOME Condition at time of disposition: Stable - Prescriptions Prescriptions: Polyethylene Glycol 3350 [Miralax (For Daily Use) -] 17 gm PO DAILY #1 bottle - Referrals Referrals: Jason Antunez MD [Primary Care Provider] - Mandeep Dia MD [Staff Physician] - - Patient Instructions Printed Discharge Instructions: DI for Constipation, DI for Rectal Bleeding Additional Instructions: Your blood work was normal today. Please take MiraLAX as prescribed and follow-up with Dr. Dia of GI for your ongoing constipation. Please return to the ER as needed - Post Discharge Activity Forms/Work/School Notes: Back to Work
== END 2019-03-13 10:05 | disposition home or self-care (01) ==
LOC: JER 08:43
DX: K59.00 Constipation, unspecified (principal); Z98.84 Bariatric surgery status; Z87.891 Personal history of nicotine dependence; J45.909 Unspecified asthma, uncomplicated
CPT/HCPCS: 36415; 80053; 85025; 99283-25

== ENCOUNTER 2019-08-13 17:19 | Emergency (ER) | payer OTHER ==
[2019-08-13 17:29] VITALS: BP 122/77; PULSE 67; TEMP 98; BMI 30.7
[2019-08-13] MEDS ORDERED: KETOROLAC TROMETHAMINE 30 MG/1 ML VIAL IM ONE (18:09)
[2019-08-13] MEDS ORDERED: KETOROLAC TROMETHAMINE 30 MG/1 ML VIAL ONE (18:14)
--- NOTE | 2019-08-13 18:15 | PDOC ---
History of Present Illness - General Chief Complaint: Back Pain Stated Complaint: BACK PAIN Time Seen by Provider: 08/13/19 17:53 - History of Present Illness Initial Comments: 08/13/19 18:09 CHIEF COMPLAINT: back pain HISTORY OF PRESENT ILLNESS: 48 yo F with no significant PMH presents to [facility] with R sided back pain x 2 weeks. 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 She reports taking Aleve and Motrin without relief. She denies any loss of sensation to b/l lower extremities, denies any loss of bowel or bladder function. No recent travel or sick contacts. PAST MEDICAL HISTORY: Denies past medical history FAMILY HISTORY: Denies SOCIAL HISTORY: Denies tobacco, alcohol, illicit drug use. SURGICAL HISTORY: Denies ALLERGIES: No known drug allergies REVIEW OF SYSTEMS General/Constitutional: Denies fever or chills. Denies weakness, weight change. HEENT: Denies change in vision. Denies ear pain or discharge. Denies sore throat. Cardiovascular: Denies chest pain or shortness of breath. Respiratory: Denies cough, wheezing, or hemoptysis. Gastrointestinal: Denies nausea, vomiting, diarrhea or constipation. Denies rectal bleeding. Genitourinary: Denies dysuria, frequency, or change in urination. Musculoskeletal: R sided back pain x 2 weeks. Skin and breasts: Denies rash or easy bruising. Neurologic: Denies headache, vertigo, loss of consciousness, or loss of sensation. Psychiatric: Denies depression or anxiety. PHYSICAL EXAM General Appearance: Well-appearing, appropriately dressed. No apparent distress , no intoxication. HEENT: EOMI, PERRLA, normal ENT inspection, normal voice, TMs normal, pharynx normal. No conjunctival pallor. No photophobia, scleral icterus. Neck: Supple. Trachea midline. No tenderness, rigidity, carotid bruit, stridor , lymphadenopathy, or thyromegaly. Respiratory/Chest: Lungs CTAB. No shortness of breath, chest tenderness, respiratory distress, accessory muscle use. No crackles, rales, rhonchi, stridor , wheezing, dullness Cardiovascular: RRR. S1, S2. No JVD, murmur, bradycardia, tachycardia. Vascular Pulses: Dorsalis-Pedis (R): 2+, Dorsalis-Pedis (L): 2+ Gastrointestinal/Abdominal: Normal bowel sounds. Abdomen soft, non-distended. No tenderness or rebound tenderness. No organomegaly, pulsatile mass, guarding , hernia, hepatomegaly, splenomegaly. Lymphatic: No adenopathy, tenderness. Musculoskeletal/Extremities: Tenderness to R paravertebral muscles at T-10-L1. Normal inspection. FROM of all extremities, normal capillary refill. Pelvis Stable. No CVA tenderness. No tenderness to extremities, pedal edema, swelling , erythema or deformity. Integumentary: Appropriate color, dry, warm. No cyanosis, erythema, jaundice or rash Neurologic: foundry molder II-XII intact. Fully oriented, alert. Appropriate mood/affect. Motor strength 5/5. No appreciable EOM palsy, facial droop or sensory deficit. Past History - Past Medical History Allergies/Adverse Reactions: Allergies Allergy/AdvReac Type Severity Reaction Status Date / Time codeine AdvReac Unknown ANXIETY;NER Verified 08/13/19 17:25 VOUS Home Medications: Ambulatory Orders Albuterol Sulfate [Albuterol Sulfate Hfa] 2 puff IH ASDIR PRN 01/22/19 Multivitamins [Tab-A-Vit -] 1 tab PO DAILY 01/22/19 Famotidine [Pepcid] 20 mg PO BID #60 tablet 01/28/19 Polyethylene Glycol 3350 [Miralax (For Daily Use) -] 17 gm PO DAILY #1 bottle Cyclobenzaprine HCl 10 mg PO HS #10 tablet 08/13/19 Diclofenac Sodium 75 mg PO BID #20 tablet. 08/13/19 Anemia: No Asthma: Yes Cancer: No Cardiac Disorders: No CVA: No COPD: No CHF: No Dementia: No Diabetes: No GI Disorders: No Disorders: No HTN: No Hypercholesterolemia: No Liver Disease: No Seizures: No Thyroid Disease: No - Surgical History Abdominal Surgery: No Appendectomy: No Cardiac Surgery: No Cholecystectomy: No Gastric Stapling: Yes (01/28/19) Lung Surgery: No Neurologic Surgery: No Orthopedic Surgery: No - Immunization History Immunization Up to Date: Yes (FLU 13-14) - Psycho Social/Smoking Cessation Hx Smoking Status: Yes Smoking History: Never smoked Years of Tobacco Use: 10 Have you smoked in the past 12 months: No Number of Cigarettes Smoked Daily: 10 If you are a former smoker, when did you quit?: 2009 Cigars Per Day: 0 Hx Alcohol Use: No Drug/Substance Use Hx: No Substance Use Type: None Hx Substance Use Treatment: No *Physical Exam - Vital Signs Last Vital Signs Temp Pulse Resp BP Pulse Ox 98 F 67 18 122/77 99 08/13/19 17:21 08/13/19 17:21 08/13/19 17:21 08/13/19 17:21 08/13/19 17:21 Medical Decision Making - Medical Decision Making 08/13/19 18:11 48 yo F with no significant PMH presents to [facility] with R sided back pain x 2 weeks. -Toradol IM Discharge - Discharge Information Problems reviewed: Yes Clinical Impression/Diagnosis: Muscle spasm Condition: Stable Disposition: HOME - Admission No - Additional Discharge Information Prescriptions: Cyclobenzaprine HCl 10 mg PO HS #10 tablet Diclofenac Sodium 75 mg PO BID #20 tablet.dr - Follow up/Referral Referrals: Fern Shi MD [Primary Care Provider] - Abe Gibbons DO [Staff Physician] - - Patient Discharge Instructions Patient Printed Discharge Instructions: DI for Back Spasm Additional Instructions: Please take medications as prescribed. Do NOT take Aleve, Motrin, ibuprofen, or Advil with diclofenac. Do NOT drive, operate machinery, or drink alcohol while taking cyclobenzaprine as it may make you drowsy. Follow up with orthopedics for further imaging and possible physical therapy as discussed. If you develop loss of sensation to your legs, inability to walk, loss of bowel or bladder control, or any new or worsening symptoms, please return to the ER immediately. - Post Discharge Activity Work/Back to School Note: Back to Work
== END 2019-08-13 18:19 | disposition home or self-care (01) ==
LOC: JER 17:19 → JERFT 17:19
PROC: 3E0233Z Introduction of Anti-inflammatory into Muscle, Percutaneous Approach (ICD-10-PCS; principal; 2019-08-13)
DX: M62.830 Muscle spasm of back (principal); Z88.5 Allergy status to narcotic agent
CPT/HCPCS: 96372; 99281-25

== ENCOUNTER 2021-10-03 13:50 | Emergency (ER) | payer OTHER ==
[2021-10-03 14:06] VITALS: BP 128/83; PULSE 79; TEMP 98; BMI 30.7
[2021-10-03] MEDS ORDERED: diazePAM 5 MG TABLET PO ONE (15:16)
[2021-10-03] MEDS ORDERED: KETOROLAC TROMETHAMINE 30 MG/1 ML VIAL IM ONE (15:16)
[2021-10-03] MEDS ORDERED: KETOROLAC TROMETHAMINE 30 MG/1 ML VIAL ONE (15:42)
[2021-10-03] MEDS ORDERED: diazePAM 5 MG TABLET ONE (15:43)
== END 2021-10-03 16:14 | disposition home or self-care (01) ==
LOC: JERFT 13:50 → JER 13:50 → JERFT 16:14
PROC: 3E023GC Introduction of Other Therapeutic Substance into Muscle, Percutaneous Approach (ICD-10-PCS; principal; 2021-10-03)
DX: M62.838 Other muscle spasm (principal)
CPT/HCPCS: 99284-25

== ENCOUNTER 2022-05-06 04:32 | Day surgery (SDC) | payer OTHER ==
[2022-05-05 12:37] VITALS: BMI 31.4
[2022-05-06] MEDS ORDERED: BUPIVACAINE HCL/PF 0.25% (2.5MG/ML) 10 ML VIAL ONE (07:25)
[2022-05-06] MEDS ORDERED: LIDOCAINE HCL/PF 1% SDV 5ML VIAL ONE (07:25)
[2022-05-06] MEDS ORDERED: TRIAMCINOLONE ACET 40MG/1ML VIAL ONE (07:25)
[2022-05-06] MEDS ORDERED: DEXAMETHASONE SOD PHOSPHATE 10 MG/1 ML VIAL ONE (13:55)
[2022-05-06] MEDS ORDERED: DEXAMETHASONE SOD PHOSPHATE 10 MG/1 ML VIAL IM ONE (13:57)
[2022-05-06] MEDS ORDERED: LIDOCAINE HCL 1% PRESERVATIVE FREE - 30ML VIAL IJ ONE (13:58)
[2022-05-06] MEDS ORDERED: IOHEXOL 180 MG/1 ML ML IJ ONE (14:01)
[2022-05-06 15:33] VITALS: BP 129/62; PULSE 61; TEMP 97.6
== END 2022-05-06 15:30 | disposition home or self-care (01) ==
LOC: JASU-SURG 04:32
PROVIDERS: ATTEND Pain Medicine Pain Medicine
PROC: 3E0R33Z Introduction of Anti-inflammatory into Spinal Canal, Percutaneous Approach (ICD-10-PCS; 2022-05-06)
PROC: B01BYZZ Fluoroscopy of Spinal Cord using Other Contrast (ICD-10-PCS; 2022-05-06)
PROC: 3E0R3BZ Introduction of Anesthetic Agent into Spinal Canal, Percutaneous Approach (ICD-10-PCS; principal; 2022-05-06 12:15)
DX: M54.12 Radiculopathy, cervical region (principal)
CPT/HCPCS: 76000-TC-FY; 81025; J1100

== ENCOUNTER 2023-08-15 05:16 | Day surgery (SDC) | payer OTHER ==
[2023-08-09 13:14] VITALS: BMI 29.0
[~2023-08-15 05:16] MED LIST: ACETAMINOPHEN 500 MG TABLET (FP) PO PRN; DEXAMETHASONE SOD PHOSPHATE 10 MG/1 ML VIAL IM ONE; LIDOCAINE 1% P/F 10 MG/ML VIAL INF ONE
[2023-08-15] MEDS ORDERED: DEXAMETHASONE SOD PHOSPHATE 10 MG/1 ML VIAL ONE (07:27)
[2023-08-15] MEDS ORDERED: LIDOCAINE HCL/PF 1% SDV 5ML VIAL ONE (07:27)
[2023-08-15 11:04] VITALS: RESP 18
[2023-08-15] MEDS ORDERED: IOHEXOL 180 MG/1 ML ML IJ ONE (15:20)
[2023-08-15] MEDS ORDERED: LIDOCAINE HCL 1% PRESERVATIVE FREE - 30ML VIAL IJ ONE (15:21)
[2023-08-15] MEDS ORDERED: DEXAMETHASONE SOD PHOSPHATE 10 MG/1 ML VIAL IVPUSH ONE (15:21)
[2023-08-15 16:00] VITALS: BP 159/94; PULSE 100; TEMP 98.9
== END 2023-08-15 16:25 | disposition home or self-care (01) ==
LOC: JASU-SURG 05:16
PROVIDERS: ATTEND Pain Medicine Pain Medicine
PROC: 3E0R3BZ Introduction of Anesthetic Agent into Spinal Canal, Percutaneous Approach (ICD-10-PCS; 2023-08-15)
PROC: 00HU33Z Insertion of Infusion Device into Spinal Canal, Percutaneous Approach (ICD-10-PCS; 2023-08-15)
PROC: 3E0R33Z Introduction of Anti-inflammatory into Spinal Canal, Percutaneous Approach (ICD-10-PCS; principal; 2023-08-15 13:30)
DX: M54.12 Radiculopathy, cervical region (principal)
CPT/HCPCS: 76000-TC-FY; J1100

== ENCOUNTER 2023-12-25 17:56 | Emergency (ER) | payer OTHER ==
[2023-12-25 18:53] VITALS: BP 121/71; PULSE 66; RESP 18; TEMP 98.2; BMI 28.0
[2023-12-25 19:58] LABS: BASO % 0.5 % (0-2.0); EOS % 1.5 % (0-4.5); HEMATOCRIT 36.5 % (32.4-45.2); HEMOGLOBIN 11.8 GM/dL (10.7-15.3); LYMPH % 40.5 % (8-40); MCH 27.9 pg (25.7-33.7); MCHC 32.4 g/dl (32.0-36.0); MEAN CELL VOLUME 86.2 fl (80-96); MEAN PLT VOLUME 8.5 fl (7.5-11.1); MONO % 9.8 % (3.8-10.2); NEUT % 47.7 % (42.8-82.8); PLATELET COUNT 242 10^3/uL (134-434); RBC 4.23 M/mm3 (3.60-5.2); RDW 13.1 % (11.6-15.6)
[2023-12-25 20:01] LABS: PH,URINE 5.5 (5.0-8.0); URINE APPEARANCE CLEAR; URINE BILIRUBIN NEGATIVE (NEGATIVE); URINE COLOR YELLOW; URINE GLUCOSE (UA) NEGATIVE (NEGATIVE); URINE KETONE TRACE (NEGATIVE); URINE LEUK ESTERASE NEGATIVE (NEGATIVE); URINE NITRITE NEGATIVE (NEGATIVE); URINE PROTEIN NEGATIVE (NEGATIVE); URINE UROBILINOGEN 0.2 mg/dL (0.2-1.0)
[2023-12-25 20:09] LABS: INR 1.05 (0.83-1.09); PROTHROMBIN TIME (PATIENT) 12.2 SEC (9.7-13.0)
[2023-12-25] MEDS ORDERED: ACETAMINOPHEN INJECTION 100 ML IVPB ONE (20:25)
[2023-12-25] MEDS ORDERED: ONDANSETRON 4 MG/2 ML VIAL ONE (20:26)
[2023-12-25] MEDS: ACETAMINOPHEN 1000 MG/100 ML BAG IVPB ONE (20:31)
[2023-12-25] MEDS: SODIUM CHLORIDE 0.9% 500 ML INFUS.BAG IV ONE (20:31)
[2023-12-25] MEDS: ONDANSETRON 4 MG/2 ML VIAL IVPUSH ONE (20:31)
[2023-12-25 20:33] LABS: POTASSIUM 4.2 mmol/L (3.5-5.1)
[2023-12-25 20:35] LABS: CALCIUM 9.3 mg/dL (8.5-10.1)
[2023-12-25 20:36] LABS: ALBUMIN 3.4 g/dl (3.4-5.0); BLOOD UREA NITROGEN 12.9 mg/dL (7-18)
[2023-12-25 20:39] LABS: CREATININE 0.8 mg/dL (0.55-1.3)
[2023-12-25 20:40] LABS: BILIRUBIN,TOTAL 0.5 mg/dL (0.2-1); TOT PROT 6.9 g/dl (6.4-8.2)
== END 2023-12-25 23:52 | disposition home or self-care (01) ==
LOC: JER 17:56
PROC: 3E033NZ Introduction of Analgesics, Hypnotics, Sedatives into Peripheral Vein, Percutaneous Approach (ICD-10-PCS; principal; 2023-12-25)
DX: K65.9 Peritonitis, unspecified (principal); R10.32 Left lower quadrant pain; R19.7 Diarrhea, unspecified; M54.9 Dorsalgia, unspecified
CPT/HCPCS: 36415; 74177-TC; 80053; 81003; 83690; 84703; 85025; 85610; 86850; 86900; 86901; 87086; 96374; 99285-25; J0131; Q9967